=== PATIENT | male | born 1980 | race Asian ===

== ENCOUNTER 2017-12-23 22:13 | Emergency (ER) | payer MEDICAID ==
[~2017-12-23] VITALS: Ht 170.2 cm; Wt 82.6 kg
[2017-12-23 22:28] VITALS: BP 137/94
[2017-12-23] MEDS ORDERED: Fluorescein Strips RIGHT EYE ONE (22:45)
[2017-12-23] MEDS ORDERED: Fluorescein Strips ONE (22:45)
[2017-12-23] MEDS ORDERED: POLYTRIM OP SOL10 ML OPHTHALM (22:58)
--- NOTE | 2017-12-23 22:59 | Emergency Room Report ---
History of Present Illness General Chief Complaint: Eye Problems Source: Patient Present Illness HPI Is a 37-year-old male with no past medical history. He presents with chief complaint of right eye pain and foreign body sensation. He was in his phone, which has a broken screen. He then felt something go into his eye and was itching and painful afterward. He did try to get it out. No loss of vision. No nausea no vomiting. Onset was acute and occurred prior to arrival. Has tearing no runny nose or congestion. No Discharge. Allergies: Coded Allergies: APPLE (Verified Allergy, Unknown, 12/23/17) Patient History Past Medical History: see triage record, old chart reviewed Past Surgical History: none Pertinent Family History: none Social History: Denies: smoking Immunizations: other Reviewed Nursing Documentation: PMH: Agreed, PSxH: Agreed Nursing Documentation-PMH Past Medical History: No Stated History Review of Systems Eye: Reports: eye pain, Denies: blurred vision ENT: Denies: ear pain, nose congestion, throat swelling Respiratory: Denies: cough, shortness of breath Cardiovascular: Denies: chest pain, palpitations Gastrointestinal: Denies: abdominal pain, diarrhea, nausea, vomiting Musculoskeletal: Denies: back pain, joint pain Skin: Denies: rash Neurological: Denies: headache, numbness Endocrine: Denies: increased thirst, increased urine Hematologic/Lymphatic: Denies: easy bruising All Other Systems: negative except mentioned in HPI Physical Exam Vital Signs Date Time Temp Pulse Resp B/P (MAP) Pulse Ox O2 Delivery O2 Flow Rate FiO2 12/23/17 22:19 97.7 75 20 137/94 98 Room Air 97.7 vitals normal Sp02 EP Interpretation: reviewed, normal General Appearance: well appearing, no apparent distress, alert Head: normocephalic, atraumatic Eyes: right eye other - Right eye: Injected conjunctiva. Small corneal abrasion at 11:00 position with fluorescein staining. No foreign body. I everted the eyelid to check also. Negative Estela sign., bilateral eye PERRL, bilateral eye EOMI ENT: hearing grossly normal, normal pharynx Neck: full range of motion, supple, no meningismus Respiratory: chest non-tender, lungs clear, normal breath sounds Cardiovascular #1: regular rate, rhythm, no murmur Gastrointestinal: normal bowel sounds, non tender, no mass, no organomegaly, no bruit, non-distended Musculoskeletal: back normal, gait/station normal, normal range of motion Psychiatric: mood/affect normal Skin: warm/dry Medical Decision Making Diagnostic Impression: Primary Impression: Corneal abrasion, right Qualified Codes: S05.01XA - Injury of conjunctiva and corneal abrasion without foreign body, right eye, initial encounter ER Course Patient presents with a small cornea abrasion from a foreign body. There is no retained foreign body. No evidence of ulcer or perforation of globe rupture. We'll discharge home. Last Vital Signs Date Time Temp Pulse Resp B/P (MAP) Pulse Ox O2 Delivery O2 Flow Rate FiO2 12/23/17 22:28 97.7 20 137/94 98 Room Air 97.7 12/23/17 22:19 75 Status: improved Disposition: HOME, SELF-CARE Condition: Stable Scripts Polymyxin/Trimethoprim (Polytrim Eye Drops) 10 Ml Drops 2 DROP OPHTHALM THREE TIMES A DAY, #1 EA Instill in affected eye for 7 days Prov: VILMA WOLFF M.D. 12/23/17 Additional Instructions: Followup with your DrKatie in 7 days. Return if worse. VILMA WOLFF M.D. Dec 23, 2017 22:59
[2017-12-23 23:02] VITALS: BP 137/94
== END 2017-12-23 23:02 | disposition home or self-care (01) ==
LOC: EDSEX 22:13 → EMR 22:40
DX: S05.01XA Injury of conjunctiva and corneal abrasion without foreign body, right eye, initial encounter (principal); X58.XXXA Exposure to other specified factors, initial encounter; Y92.9 Unspecified place or not applicable
CPT/HCPCS: 99283